=== PATIENT | male | born 1995 | race African-American/Black ===

== ENCOUNTER 2017-01-05 23:46 | Emergency (ER) | payer MEDICAID ==
--- NOTE | 2017-01-06 00:14 | EDM.PDOC ---
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 Pt was told to receive another xray in 2 weeks to r/o Fx. Pt came to this ed to get another xray of his right elbow. Pt has limited ROM r elbow due to pain. Now new trauma. BP 154/87 No other acute medical issues Onset Date: 12/23/16 Onset Time: 07:00 Duration: Week(s):, Intermittent Location: Reports: Upper Extremity, Right Quality: Reports: Ache, Dull, Stabbing Severity: Mild Improves with: Reports: Rest Worsens with: Reports: Movement Context: Reports: Trauma (injured r elbow a few weeks ago during a foot ball game) Associated Symptoms: Reports: No Other Symptoms Left Arm Pain Score (Numeric/FACES): 6 - Related Data Allergies Allergy/AdvReac Type Severity Reaction Status Date / Time No Known Allergies Allergy Verified 01/05/17 23:51 Home Meds: Home Meds NK [No Known Home Meds] 01/05/17 [History] Review of Systems - Review of Systems Review Of Systems: See Below Constitutional: Reports: No Symptoms Eyes: Reports: No Symptoms Ears: Reports: No Symptoms Nose: Reports: No Symptoms Mouth/Throat: Reports: No Symptoms Respiratory: Reports: No Symptoms Cardiovascular: Reports: No Symptoms GI/Abdominal: Reports: No Symptoms Genitourinary: Reports: No Symptoms Musculoskeletal: Reports: Joint Swelling (r elbow pain) Skin: Reports: No Symptoms Neurological: Reports: No Symptoms Psychiatric: Reports: No Symptoms ED EXAM, GENERAL - Physical Exam Exam: See Below Exam Limited By: No Limitations General Appearance: Alert, WD/WN, Mild Distress Eye Exam: Bilateral Eye: Normal Inspection Ears: Normal External Exam Ear Exam: Bilateral Ear: Auricle Normal Nose: Normal Inspection, Normal Mucosa, No Blood Throat/Mouth: Normal Inspection, Normal Lips, Normal Teeth Head: Atraumatic, Normocephalic Neck: Normal Inspection, Supple, Non-Tender Respiratory/Chest: No Respiratory Distress, Lungs Clear, Normal Breath Sounds Cardiovascular: Normal Peripheral Pulses, Regular Rate, Rhythm, No Edema, No Gallop, No JVD Peripheral Pulses: 1+: Femoral (L), Femoral (R) GI/Abdominal: Normal Bowel Sounds, Soft, Non-Tender (Male) Exam: Deferred Rectal (Males) Exam: Deferred Back Exam: Normal Inspection, Full Range of Motion Extremities: Normal Inspection, Limited Range of Motion (r elbow due to pain) Neurological: Alert, Oriented, CN II-XII Intact, Normal Cognition, Normal Gait Psychiatric: Normal Affect, Normal Mood Skin Exam: Warm, Dry, Intact, Normal Color Lymphatic: No Adenopathy Course - Vital Signs Text/Narrative:: 21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 Pt was told to receive another xray in 2 weeks to r/o Fx. Pt came to this ed to get another xray of his right elbow. Pt has limited ROM r elbow due to pain. Now new trauma. BP 154/87 No other acute medical issues. IN: R elbow pain with franchesca, ROM, no open wound, mild swelling Imaging: Anterior fat bad sign, official report is pending Impression: Poss hairline fx r elbow Tx; Ice, armsling, pt refused pain meds. Reexam: improved Plan: D/C with instructions Last Recorded V/S: Last Vital Signs Temp 36.3 C 01/05/17 23:53 Pulse 73 01/06/17 00:34 Resp 18 01/05/17 23:53 BP 140/75 01/06/17 00:34 Pulse Ox 100 01/05/17 23:53 Departure - Departure Time of Disposition: 00:32 Disposition: Home, Self-Care 01 Condition: Good Clinical Impression: Elbow pain, right - Discharge Information Referrals: PCP,None [Primary Care Provider] - Forms: ED Department Discharge Additional Instructions: Ice, rest and elevation, Motrin for pain, please f/u wit ortho a.s.a.p. you may have a humerus fx (hailine) needs further evaluation. Please come back if your symptoms get worse acutely
--- NOTE | 2017-01-06 11:07 | CR ---
INDICATION: Trauma 2 weeks ago. Now has pain running down lateral/medial. RIGHT ELBOW: Three views of the right elbow were obtained and revealed no definite acute fracture or dislocation. No joint effusion was seen. There is an appearance of spurs off the anterior cranial aspect of the olecranon process near the medial elbow joint compartment joint surface. 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 There are two small calcific densities adjacent to the medial humeral condyle likely representing dystrophic soft tissue calcifications from previous injury. IMPRESSION: 1. No definite acute fracture or dislocation. 2. 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 MTDD
== END 2017-01-06 00:37 | disposition home or self-care (01) ==
LOC: FB.ED 23:46
DX: M25.521 Pain in right elbow (principal)
CPT/HCPCS: 73070-RT; 99283